=== PATIENT | male | born 1950 | race Caucasian/White ===

== ENCOUNTER 2018-04-07 10:31 | Outpatient (CLI) | payer MEDICARE, OTHER, SELFPAY ==
[2018-04-09 09:52] LABS: PSA, Diagnostic 0.2 ng/ml (0-4.5)
== END 2018-04-07 10:51 ==
PROVIDERS: PCP Nurse Practitioner Family; Visit Provider Urology
DX: C61 Malignant neoplasm of prostate (principal)
CPT/HCPCS: 36415; 84153

== ENCOUNTER 2018-10-09 08:55 | Outpatient (CLI) | payer MEDICARE, OTHER, SELFPAY ==
[2018-10-10 09:49] LABS: PSA, Diagnostic 0.2 ng/ml (0-4.5)
== END 2018-10-09 09:15 ==
PROVIDERS: PCP Nurse Practitioner Family; Visit Provider Urology
DX: C61 Malignant neoplasm of prostate (principal)
CPT/HCPCS: 36415; 84153

== ENCOUNTER 2019-03-27 08:41 | Outpatient (CLI) | payer MEDICARE, OTHER, SELFPAY ==
[2019-03-28 10:34] LABS: PSA, Diagnostic 0.2 ng/ml (0-4.5)
== END 2019-03-27 09:01 ==
PROVIDERS: PCP Nurse Practitioner Family; Visit Provider Urology
DX: C61 Malignant neoplasm of prostate (principal)
CPT/HCPCS: 36415; 84153

== ENCOUNTER 2019-10-09 01:10 | Outpatient (CLI) | payer MEDICARE, OTHER, SELFPAY ==
[2019-10-11 10:57] LABS: PSA, Diagnostic 0.2 ng/mL (0.0-4.5)
== END 2019-10-09 01:30 ==
PROVIDERS: PCP Nurse Practitioner Family; Visit Provider Urology
DX: C61 Malignant neoplasm of prostate (principal)
CPT/HCPCS: 36415; 84153

== ENCOUNTER 2020-05-14 01:49 | Outpatient (CLI) | payer MEDICARE, OTHER, SELFPAY ==
[2020-05-18 09:53] LABS: PSA, Diagnostic 0.3 ng/mL (0.0-4.5)
== END 2020-05-14 02:09 ==
PROVIDERS: PCP Nurse Practitioner Family; Visit Provider Urology
DX: C61 Malignant neoplasm of prostate (principal)
CPT/HCPCS: 36415; 84153

== ENCOUNTER 2020-11-10 03:07 | Outpatient (CLI) | payer MEDICARE, OTHER, SELFPAY ==
[2020-11-10 22:28] LABS: PSA, Diagnostic 0.2 ng/mL (0.0-4.5)
== END 2020-11-10 03:08 | disposition home or self-care (01) ==
LOC: LBO 03:08
PROVIDERS: PCP Nurse Practitioner Family; Visit Provider Urology
DX: C61 Malignant neoplasm of prostate (principal)
CPT/HCPCS: 36415; 84153

== ENCOUNTER 2021-05-24 02:44 | Outpatient (CLI) | payer MEDICARE, OTHER, SELFPAY ==
[2021-05-25 19:15] LABS: PSA, Diagnostic 0.3 ng/mL (0.0-4.5)
== END 2021-05-24 02:45 | disposition home or self-care (01) ==
PROVIDERS: Pediatrics; PCP Nurse Practitioner Family; Visit Provider Urology
DX: C61 Malignant neoplasm of prostate (principal)
CPT/HCPCS: 36415; 84153

== ENCOUNTER 2021-06-11 10:59 | Outpatient (REF) | payer MEDICARE, OTHER, SELFPAY ==
[2021-06-12 20:59] LABS: COVID-19 RT-PCR UVMMC Result Positive (Negative)
== END 2021-06-11 11:00 | disposition home or self-care (01) ==
LOC: NCHCN 10:59
PROVIDERS: PCP Nurse Practitioner Family; Visit Provider Nurse Practitioner Family
DX: Z20.822 Contact with and (suspected) exposure to COVID-19 (principal)
CPT/HCPCS: U0003; U0005

== ENCOUNTER 2021-11-23 03:14 | Outpatient (CLI) | payer MEDICARE, OTHER, SELFPAY ==
[2021-11-24 19:05] LABS: PSA, Diagnostic 0.3 ng/mL (<=6.5)
== END 2021-11-23 03:15 | disposition home or self-care (01) ==
LOC: LBO 03:14
PROVIDERS: PCP Nurse Practitioner Family; Visit Provider Urology
DX: C61 Malignant neoplasm of prostate (principal)
CPT/HCPCS: 36415; 84153

== ENCOUNTER 2022-06-01 03:23 | Outpatient (CLI) | payer MEDICARE, OTHER, SELFPAY ==
[2022-06-02 19:19] LABS: PSA, Diagnostic 0.3 ng/mL (<=6.5)
== END 2022-06-01 03:24 | disposition home or self-care (01) ==
LOC: LBO 03:23
PROVIDERS: PCP Nurse Practitioner Family; Visit Provider Urology
DX: C61 Malignant neoplasm of prostate (principal)
CPT/HCPCS: 36415; 84153

== ENCOUNTER 2022-06-10 15:59 | Outpatient (REF) | payer MEDICARE, OTHER, SELFPAY ==
[2022-06-10 14:29] LABS: Hemoglobin A1C 5.4 % (<5.7)
[2022-06-10 14:50] LABS: Calculated LDL 153 mg/dL (<100); Cholesterol 249 mg/dL (<200); HDL Cholesterol 87 mg/dL (40-60); TSH (W/Ref FT4) 1.74 uIU/mL (0.36-3.74); Triglyceride 45 mg/dL (<150); Vitamin B12 261 pg/mL (193-986)
== END 2022-06-10 16:00 | disposition home or self-care (01) ==
LOC: NCHCN 15:59
PROVIDERS: PCP Nurse Practitioner Family; Visit Provider Nurse Practitioner Family
DX: Z00.00 Encounter for general adult medical examination without abnormal findings (principal); R07.89 Other chest pain; E78.5 Hyperlipidemia, unspecified; C61 Malignant neoplasm of prostate; R06.83 Snoring; M19.049 Primary osteoarthritis, unspecified hand; R41.3 Other amnesia; R68.2 Dry mouth, unspecified; Z83.3 Family history of diabetes mellitus
CPT/HCPCS: 80061; 82607; 83036; 84443

== ENCOUNTER 2022-11-30 03:01 | Outpatient (CLI) | payer MEDICARE, OTHER, SELFPAY ==
[2022-12-01 21:53] LABS: PSA, Diagnostic 0.4 ng/mL (<=6.5)
== END 2022-11-30 03:02 | disposition home or self-care (01) ==
LOC: LBO 03:01
PROVIDERS: PCP Nurse Practitioner Family; Visit Provider Urology
DX: C61 Malignant neoplasm of prostate (principal)
CPT/HCPCS: 36415; 84153

== ENCOUNTER → 2023-01-12 08:54 | Outpatient (BNVA) | payer MEDICARE, OTHER, SELFPAY | PROVIDERS: PCP Nurse Practitioner Family; Referring Provider Nurse Practitioner Family; Visit Provider Physical Therapy Assistant | DX: Z12.11 Encounter for screening for malignant neoplasm of colon (principal) ==

== ENCOUNTER 2023-01-26 07:21 | Day surgery (SDC) | payer MEDICARE, OTHER, SELFPAY ==
--- NOTE | 2023-01-25 21:22 | W.PM.DSUDISC ---
Date of service: 01/26/23 Time of Service: 09:37 Discharge Plan Disposition Patient Disposition: Home Condition: Good Discharge Details Reason For Visit: Screening colonoscopy Attending Provider: Javier Ortiz Primary Care Provider: Lindsay Alvarez Home Meds and New Rx's Prescriptions: Discontinued polyethylene glycol 3350 17 gram/dose powder 238 g PO ONCE Qty: 238 0RF Rx Instructions: take per colonoscopy instructions bisacodyl [Dulcolax (bisacodyl)] 5 mg tablet,delayed release (DR/EC) 5 mg PO ONCE Qty: 4 0RF Rx Instructions: take per colonoscopy instructions No Action No Known Home Meds Discharge Instructions Instructions: Colorectal Polyps (GEN), Diverticulosis (GEN), Diverticulosis Diet (GEN) Additional Instructions: Kehinde, we were able to complete your colonoscopy today without any difficulty. The quality of your prep was excellent. I did see a fair amount of colonic diverticulosis. Diverticula are weak spots in the wall of the large intestine. I find them very commonly. They can become infected, and when that happens, patients typically experience pain on the left side or lower portion of their abdomen. In severe cases, patients need to be treated with antibiotics. I have attached some general information here regarding diverticular disease and the basic management principles. I also found 1 small polyp. I removed this polyp completely. When I have the results of the pathology report, I will be in touch with my recommendations for future colonoscopies. 1. If tolerated, consume a soft, low fiber diet for 1-2 days. 2[address] Do not drive, drink alcohol, operate machinery, make critical decisions, or do activities that require coordination or balance for 24 hours. 3. Because air was put into your colon during the procedure, expelling air from your rectum (passing gas or farting) is normal. 4. You may not have a bowel movement for 1-3 days because of the colonoscopy prep. This is normal. 5. Go directly to the emergency room if you notice any of the following: Develop chills (warm to touch), or if you have a thermometer and your temperature is above 101 Difficulty breathing or difficultly swallowing Persistent vomiting Severe abdominal pain, other than gas cramps Severe chest pain Black, tarry stools Any bleeding ? exceeding one tablespoon 6. Call your physician if the site where your intravenous was started becomes red, swollen, painful, and warm to touch. 7. Your physician has reviewed your pre-procedure medications. Please continue to take those medications as previously ordered. You will be given specific information/education regarding any changes to your medications before leaving. Activity:: Activity as Tolerated Diet:: As Tolerated Discharge Orders Discharge Orders: Discharge Order (Routine); Ordered 01/25/23 Ordered By: Javier Ortiz DS: Diagnosis Discharge Diagnosis (1) Screening for colon cancer: Status: Acute Asessment and Plan: Follow-up on polypectomy results
--- NOTE | 2023-01-25 21:23 | COLE_ITS ---
Date of service: 01/26/23 Time of Service: 09:39 Colonoscopy Report Date of procedure: 01/26/23 Pre-op diagnosis general: Screening colonoscopy Post-op diagnosis procedure note: other (Diverticulosis, cecal polyp) Procedure: Colonoscopy with polypectomy Surgeon: Javier Ortiz Anesthesia Type: General:No Airway Estimated blood loss (mL): 5 Pathology: other (Cecal polyp) Complications: None Disposition: same day Indications: Salvatore is a 72-year-old male needs another screening colonoscopy Prep: Miralax/Dulcolax Procedure Start Time: :05 Procedure End Time: :25 Retraction Time: 12 Findings: Extensive colonic diverticulosis; cecal polyp Procedure Description: After the induction of monitored anesthetic care, and with the patient in left lateral decubitus position, I began by performing an external anorectal exam.? P erineum and skin were normal, as was the anal verge.? There was no evidence of external hemorrhoids.? Next, I performed a digital rectal exam.? I did not appreciate any abnormal findings.? Next, I advanced a colonoscope into the rectal vault.? I performed retroflexion.? This appeared normal.? Using insufflation, I then advanced the colonoscope beyond the rectal folds and into the sigmoid colon before advancing towards the cecum.? The quality of the prep was excellent.? There was extensive diverticulosis, most heavily focused in the sigmoid colon, but certainly extending into the descending and transverse colons. There were sparse and scattered diverticula in the cecum as well. The scope was noted to be in the cecum by identification of the ileocecal valve and appendiceal orifice.? Just proximal to the ileocecal valve was a 0.25 cm sessile polyp. I removed it with cold forceps. There was minimal bleeding. I then began withdrawing the colonoscope using repeated irrigation as necessary for full evaluation of the colonic mucosa. ?Once the scope was withdrawn to the level of the rectum, great care was taken to examine portions of the rectal folds.? Finally, the scope was withdrawn and the patient was brought to the same-day surgery recovery unit as the anesthetic wore off. ?The findings and instructions were shared with the patient prior to discharge.
[2023-01-26 07:33] VITALS: BP 135/82; PULSE 57; RESP 16; TEMP 36.4; O2SAT 100
[2023-01-26] MEDS: Lactated Ringers 1,000 ML 80 ML IV (07:49)
--- NOTE | 2023-01-26 08:04 | W.ANESPRE ---
General Info Height: 5 ft 7 in Weight: 70.7 kg Body Mass Index (BMI): 24.4 Surgical Procedure: Operation Date: 01/26/23 09:05 Proposed Procedure Side Surgeon p Lakeshia Ortiz MD Meds Allergies and Home Medications Allergies Allergy/AdvReac Type Severity Reaction Status Date / Time No Known Allergies Allergy Verified 01/26/23 07:40 Home Medication Medication Instructions Recorded Unknown [No Known Home Meds] 01/26/23 Current Visit Medications: Current Medications Generic Name Dose Route Start Last Admin Trade Name Freq PRN Reason Stop Dose Admin Hyoscyamine Sulfate 0.125 mg 01/25/23 21:24 Hyoscyamine 0.125 Mg Sl/Oral/Chew SL 02/24/23 21:23 DIRECTED PRN Ringer's Solution 1,000 mls @ 80 mls/hr 01/26/23 06:00 01/26/23 07:49 IV 02/24/23 23:59 80 mls/hr INFUSION ALEX Administration IV Miscellaneous Supplies 1 each 01/26/23 06:00 Iv Access IV 02/24/23 23:59 DIRECTED ALEX Ondansetron HCl 4 mg 01/25/23 21:24 Ondansetron 4 Mg/2 Ml Vial IVP 02/24/23 21:23 Q4H PRN PRN Nausea / Vomiting Sodium Chloride 0 ml 01/26/23 06:00 Normal Saline Flush 10 Ml Syr IV 02/24/23 23:59 PRN PRN Sodium Chloride 0 ml 01/26/23 06:00 Normal Saline 10 Ml Vial IJ 02/24/23 23:59 DIRECTED PRN Sterile Water 0 ml 01/26/23 06:00 Water,Injection,Sterile 10 Ml Vial IJ 02/24/23 23:59 DIRECTED PRN PFSH Active Problems Active Problems: Problem Status Onset Code Screening for colon cancer Z12.11 Memory impairment R41.3 Medical History Medical History Bladder neck contracture Chest mass Per pt. states It's nothing serious Per 2018 chest US report: A prominent anterior projection of the xiphoid is noted. There is no evidence of a soft tissue mass or fluid collection. The bone is not well evaluated by ultrasound. If there is further clinical concern, a CT could be performed. Decreased hearing of both ears Dry mouth Erectile dysfunction Family history of diabetes mellitus Hyperlipemia Osteoarthritis of fingers of both hands Prostate cancer Snoring Tinnitus of both ears Surgical History Surgical History H/O prostatectomy History of colonoscopy History of tonsillectomy Tobacco Smoking/Tobacco Use Status: Former Tobacco Use Alcohol Alcohol Intake: former Substance Use Substance use: Rarely Substance use type: marijuana Vital Signs and Lab Results Vital Signs Most Recent Vital Signs in EMR: Most Recent Vital Signs Temp Pulse Resp BP Pulse Ox 36.4 C L 57 L 16 135/82 100 01/26/23 07:33 01/26/23 07:33 01/26/23 07:33 01/26/23 07:33 01/26/23 07:33 Lab Results Blood Type / Crossmatch: No Data to Display Complete Blood Count: No Data to Display Complete Metabolic Panel: No Data to Display Liver Function Panel: No Data to Display Coagulation Panel: No Data to Display Cardiac Panel: No Data to Display Arterial Blood Gas: No Data to Display Venous Blood Gas: No Data to Display Pancreas Panel: No Data to Display Thyroid Panel: No Data to Display Infectious Disease: No Data to Display Blood Cultures: No Data to Display Toxicology Panel: No Data to Display Anesthesia Assessment and Plan Anesthesia History Personal History: No History of Anesthesia Complications Family History: No Family History of Anesthesia Complications Cardiac & Pulmonary Exam Cardiac Exam: Normal S1/S2 Heart Sounds Pulmonary Exam: Clear Bilateral Breath Sounds Implantable Cardiac Device Does patient have a Pacemaker or an ICD?: No ASA Classification ASA Score: ASA 2 Emergency Case?: No Anesthesia Plan Resuscitation Status: Full Code Anesthesia Technique: General Anesthesia Airway Planned: Natural Airway Monitors Used: Standard Monitors Preoperative Comments:: 72 yo male for colo. Sig PMHx: prostate CA (prostatectomy), former smoker (1969), former EtOH, occ cannabis.
--- NOTE | 2023-01-26 08:13 | W.ANESPRE ---
General Info Date of Service Date Performed: 01/26/23 Height: 5 ft 7 in Weight: 70.7 kg Body Mass Index (BMI): 24.4 Surgical Procedure: Operation Date: 01/26/23 09:05 Proposed Procedure Side Surgeon p Lakesiha Ortiz MD Meds Allergies and Home Medications Allergies Allergy/AdvReac Type Severity Reaction Status Date / Time No Known Allergies Allergy Verified 01/26/23 07:40 Home Medication Medication Instructions Recorded Unknown [No Known Home Meds] 01/26/23 Current Visit Medications: Current Medications Generic Name Dose Route Start Last Admin Trade Name Freq PRN Reason Stop Dose Admin Hyoscyamine Sulfate 0.125 mg 01/25/23 21:24 Hyoscyamine 0.125 Mg Sl/Oral/Chew SL 02/24/23 21:23 DIRECTED PRN Ringer's Solution 1,000 mls @ 80 mls/hr 01/26/23 06:00 01/26/23 07:49 IV 02/24/23 23:59 80 mls/hr INFUSION ALEX Administration IV Miscellaneous Supplies 1 each 01/26/23 06:00 Iv Access IV 02/24/23 23:59 DIRECTED ALEX Ondansetron HCl 4 mg 01/25/23 21:24 Ondansetron 4 Mg/2 Ml Vial IVP 02/24/23 21:23 Q4H PRN PRN Nausea / Vomiting Sodium Chloride 0 ml 01/26/23 06:00 Normal Saline Flush 10 Ml Syr IV 02/24/23 23:59 PRN PRN Sodium Chloride 0 ml 01/26/23 06:00 Normal Saline 10 Ml Vial IJ 02/24/23 23:59 DIRECTED PRN Sterile Water 0 ml 01/26/23 06:00 Water,Injection,Sterile 10 Ml Vial IJ 02/24/23 23:59 DIRECTED PRN PFSH Active Problems Active Problems: Problem Status Onset Code Screening for colon cancer Z12.11 Memory impairment R41.3 Medical History Medical History Bladder neck contracture Chest mass Per pt. states It's nothing serious Per 2018 chest US report: A prominent anterior projection of the xiphoid is noted. There is no evidence of a soft tissue mass or fluid collection. The bone is not well evaluated by ultrasound. If there is further clinical concern, a CT could be performed. Decreased hearing of both ears Dry mouth Erectile dysfunction Family history of diabetes mellitus Hyperlipemia Osteoarthritis of fingers of both hands Prostate cancer Snoring Tinnitus of both ears Surgical History Surgical History H/O prostatectomy History of colonoscopy History of tonsillectomy Tobacco Smoking/Tobacco Use Status: Former Tobacco Use Alcohol Alcohol Intake: former Substance Use Substance use: Rarely Substance use type: marijuana Vital Signs and Lab Results Vital Signs Most Recent Vital Signs in EMR: Most Recent Vital Signs Temp Pulse Resp BP Pulse Ox 36.4 C L 57 L 16 135/82 100 01/26/23 07:33 01/26/23 07:33 01/26/23 07:33 01/26/23 07:33 01/26/23 07:33 Lab Results Blood Type / Crossmatch: No Data to Display Complete Blood Count: No Data to Display Complete Metabolic Panel: No Data to Display Liver Function Panel: No Data to Display Coagulation Panel: No Data to Display Cardiac Panel: No Data to Display Arterial Blood Gas: No Data to Display Venous Blood Gas: No Data to Display Pancreas Panel: No Data to Display Thyroid Panel: No Data to Display Infectious Disease: No Data to Display Blood Cultures: No Data to Display Toxicology Panel: No Data to Display Anesthesia Assessment and Plan Anesthesia History Personal History: No History of Anesthesia Complications Family History: No Family History of Anesthesia Complications Exercise Tolerance Exercise Tolerance: Metabolic Equivalents>4 Pertinent Negatives Pertinent Negatives: No Symptoms of GERD, No Major Cardiovascular Symptoms or Complaints and No Major Pulmonary Symptoms or Complaints Cardiac & Pulmonary Exam Cardiac Exam: Normal S1/S2 Heart Sounds Pulmonary Exam: Clear Bilateral Breath Sounds Implantable Cardiac Device Does patient have a Pacemaker or an ICD?: No Airway Exam Known Difficult Airway: No Mallampati Class: 2 Mouth Opening: Normal (> 3cm) Thyromental Distance: Greater than 3 cm Neck Range of Motion: Full ROM Neck Circumference: Normal Teeth Condition: Normal Dentition ASA Classification ASA Score: ASA 2 Emergency Case?: No NPO Status NPO Status: NPO Clears >2 hours, Solids >8 hours Anesthesia Plan Resuscitation Status: Full Code Anesthesia Technique: General Anesthesia Airway Planned: Natural Airway Monitors Used: Standard Monitors
[2023-01-26 08:16] VITALS: BMI 24.4
--- NOTE | 2023-01-26 09:17 | BOWEL_PTH ---
PATIENT: Kehinde Bravo LOC: [facility] U#:[id number] AGE/SX: 72/M ROOM: RE01/26/[address]: Javire Ortiz MD : 1950 BED: DIS: 01/26/2023 SPEC #: [id number] RECD: 01/26/23 12:02 STATUS: GREG REQ #: [id number] HONG: 01/26/23 09:[address]: Javier Ortiz DEPT: Surgical Specimen RECD BY: Sharon Huerta ENTERED: 01/26/23 12:02 SP TYPE: Bowel OTHR DR: Lindsay Alvarez Tissues: 1 - BIOPSY BOWEL Procedures: GROSS AND MICRO LEVEL 4 Comments: [id number]
[2023-01-26 09:35] VITALS: BP 107/80; PULSE 57; RESP 18; TEMP 36.4; O2SAT 98
--- NOTE | 2023-01-26 09:43 | W.ANESPOSTOP ---
Postoperative Evaluation Date, Time and Location Date Performed: 01/26/23 Time Performed: 09:43 Patient Location: Day Surgery Unit Vital Signs Most Recent Imported Vital Signs: Most Recent Vital Signs Temp Pulse Resp BP Pulse Ox 36.4 C L 57 L 18 107/80 98 01/26/23 09:35 01/26/23 09:35 01/26/23 09:35 01/26/23 09:35 01/26/23 09:35 Pain Score Most Recent Pain Score: Most Recent Pain Score Pain Level 0 01/26/23 09:35 Assessment Mental Status: Awake (Alert & Oriented to Patient Baseline) Airway and Respiratory Function: Patent airway with normal (patient baseline) respiratory exam Cardiovascular Function: Hemodynamically Stable Hydration Status: Adequately Hydrated Nausea & Vomiting: No Nausea or Vomiting Pain: Pt. Denies Any Pain Peripheral Nerve Block: Patient did not receive a nerve block
[2023-01-26 09:54] VITALS: BP 124/82; PULSE 54; RESP 18; TEMP 36.4; O2SAT 98
== END 2023-01-26 10:25 | disposition home or self-care (01) ==
PROVIDERS: PCP Nurse Practitioner Family; Visit Provider Surgery
PROC: 0DJD8ZZ Inspection of Lower Intestinal Tract, Via Natural or Artificial Opening Endoscopic (ICD-10-PCS; CPT 45378; principal; 2023-01-26 09:00)
DX: Z12.11 Encounter for screening for malignant neoplasm of colon (principal); K63.5 Polyp of colon; K57.30 Diverticulosis of large intestine without perforation or abscess without bleeding
CPT/HCPCS: 45380; 88305

== ENCOUNTER 2023-06-08 04:55 | Outpatient (CLI) | payer MEDICARE, OTHER, SELFPAY ==
[2023-06-08 23:27] LABS: PSA, Diagnostic 0.3 ng/mL (<=6.5)
--- OUTSIDE RECORDS SUMMARY | 2023-06-09 12:08 | XMS_ITS | Continuity of Care Document ---
Author Name Unknown Organization [facility] Ambulatory [facility] Address [address] [place] [address] Care Team Providers Care Food Science Technician Name Role Phone JARAD ESPINOZA APRN Primary Care Physician [phone] Encounter [facility] NBR [id number] Date(s): 11/28/22 - 11/28/22 [facility] [address] [place] [address]- [place] Discharge Disposition: Home Allergies, Adverse Reactions, Alerts No Known Allergies Assessment and Plan Future Appointments Future Scheduled Tests Laboratory* PSA Diagnostic 11/07/22 * PSA Diagnostic 05/28/22 Problem List Condition Confirmation Course Effective Dates Status Health St [facility] Informant Erectile dysfunction Confirmed Active Prostate cancer Confirmed Active Procedures Procedure Date Related Diagnosis Body Site Status Cystoscopy 1 Completed Hernia repair 2 Completed Robotic assisted surgery 3 Completed 1with laser urethrotomy for postoperative stricture X2 in 2010 2left inguinal hernia repair 3robotic assisted radical prostatectomy 2009 Social History Social History Type Response Tobacco Never tobacco user T obacco Use:. Sex Patient Care team information Care Team Personnel Name: JARAD ESPINOZA APRN Position: No Access Member Role: Primary Care Physician Address: Address: [address] [place] [address] Care Team Related Persons Name: ROBERTO CARTER Address: Home [address] [place] [address]
--- OUTSIDE RECORDS SUMMARY | 2023-06-09 12:08 | XMS_ITS | Continuity of Care Document ---
Author Name Unknown Organization [facility] Ambulatory Clin[facility] Address [address] [place] [address] Care Team Providers Care Manager Of Compliance Name Role Phone JARAD ESPINOZA APRN Primary Care Physician [phone] Encounter [id number] [facility] NBR [id number] Date(s): 12/13/22 - 12/13/22 [facility] Ambulatory [facility] [address] [place] [address]- [place] Encounter Diagnosis Prostate cancer(Discharge Diagnosis) - 12/13/22 Discharge Disposition: Home or Self Care Attending Physician: Nia Glasgow MD Allergies, Adverse Reactions, Alerts No Known Allergies Assessment and Plan Future Appointments Future Scheduled Tests Laboratory* PSA Diagnostic 05/23/23 * PSA Diagnostic 11/07/22 * PSA Diagnostic 05/28/22 Functional Status 12/13/22 Recent Travel History No recent travel Other exposure to Infectious Disease Non e Medications No Known Medications Problem List Condition Confirmation Course Effective Dates Status Health St at[facility] Informant Erectile dysfunction Confirmed Active Prostate cancer Confirmed Active Procedures Procedure Date Related Diagnosis Body Site Status Cystoscopy 1 Completed Hernia repair 2 Completed Robotic assisted surgery 3 Completed 1with laser urethrotomy for postoperative stricture X2 in 2010 2left inguinal hernia repair 3robotic assisted radical prostatectomy 2010 Results Laboratory List Name Date .Urinalysis POCT 12/13/22 Most recent to oldest [Reference Range]: 1 Method of Collect POC Clean Catch *NA* (12/13/22 9:12 AM) Specific [place], Ur POC 1.015 *NA* (12/13/22 9:12 AM) Specimen Color POC [Yellow] Yellow (12/13/22 9:12 AM) Glucose, Urine POC Negative mg/dL *NA* (12/13/22 9:12 AM) Bilirubin, Urine POC [Negative] Negative (12/13/22 9:12 AM) Ketones, Urine POC [Negative mg/dL] Nega tive mg/dL (12/13/22 9:12 AM) Blood, Urine POC [Negative] Negative (12/13/22 9:12 AM) pH, Urine POC 7.0 *NA* (12/13/22 9:12 AM) Protein, Urine POC [Negative mg/dL] Nega tive mg/dL (12/13/22 9:12 AM) Urobilinogen, Urine POC [0.2] 0.2 (12/13/22 9:12 AM) Nitrite, Urine POC [Negative] Negative (12/13/22 9:12 AM) Leuk Esterase, Urine POC [Negative] Nega tive (12/13/22 9:12 AM) Clarity, Urine POC [Clear] Clear (12/13/22 9:12 AM) Vital Signs Most recent to oldest [Reference Range]: 1 Temperature Temporal Artery [36-38 Deg C ] 35.8 Deg C *LOW* (12/13/22 8:48 AM) Peripheral Pulse Rate [60-100 bpm] 61 bp m (12/13/22 8:48 AM) Blood Pressure [90-140/60-90 mmHg] 122/6 6mmHg (12/13/22 8:48 AM) Weight 73.94 kg (12/13/22 8:48 AM) Weight Measured (lbs) 163.01 lb (12/13/22 8:48 AM) [place] Body Weight Calculated 68.4 kg (12/13/22 8:48 AM) Height 172.72 cm (12/13/22 8:48 AM) Height/Length Measured (inches) 68 inch (12/13/22 8:48 AM) BSA Measured 1.88 m2 (12/13/22 8:48 AM) Body Mass Index 24.79 kg/m2 (12/13/22 8:48 AM) Social History Social History Type Response Tobacco Never tobacco user T obacco Use:. Sex Physician Outpatient Note * Nia Glasgow MD: PERFORM Event Display: Office Clinic Note Physician Authored Date: [id number] ELVA MERLOS :1950 Age:72 years Sex:Male Visit Date:12/13/2022 Primary Care Physician: JARAD ESPINOZA APRN Chief Complaint 1 year follow up History of Present Illness Mr. Merlos is a pleasant 72-year-old man here for follow up of prostate cancer. 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 Surgical margins were positive, and perineural invasion was noted. He had a post-operative urine leak, and early issues with an anastomotic stricture that required surgical intervention twice in the year after his surgery. He was last seen by me on 11/30/21.? His PSAs were initially undetectable, but for the past three years has been very slowly rising. ?? He denies unintended weight loss, fevers, chills, night sweats, or unusual new aches or pains. ?? He is voiding without difficulty. He has nocturia x 1. He voids about every??1.5-2 ??h while awake.?? He denies urinary urgency. He has a sometimes slow but always steady urinary stream.? He has occasional faint LISA with heavy lifting and exercise. He does not need to use pads.? He denies gross hematuria, dysuria. He has never had UTI.? PSA: 11/30/22: 0.4 11/23/21: 0.3 11/10/20: 0.2 05/14/20: 0.3 10/09/19: 0.2 03/25/19: 0.2 10/09/18: 0.2 04/07/19: 0.2 04/07/18: 0.2 09/25/17: 0.2 03/27/17: 0.2 12/25/15: 0.1 06/23/15: 0.1 03/25/15: 0.2 10/07/14: 0.1. Physical Exam Vitals & Measurements T:??35.8?C ??(Temporal Artery)?? HR:??61??(Peripheral)?? BP:??122/66?? SpO2:??98%?? HT:??172.72??cm?? WT:??73.94??kg?? BMI:??24.79?? BSA:??1.88?? GENERAL APPEARANCE:??alert and oriented in NAD; appropriate with good affect.??.?? NEURO:??grossly intact.?? HEENT:??NCAT; EOMI.?? NECK:??supple.?? CHEST:??symmetric excursions.?? ABDOMEN:??soft, NT, ND.?? MUSCULOSKELETAL:??good gait and station.?? EXTREMITIES:??no c/c/e??.?? BACK/SPINE:??no CVAT.?? :??deferred. Assessment/Plan Prostate cancer??C61 Ordered: Bladder Scan POC, 12/13/22 8:51:00 EDT, Prostate cancer, 12/13/22 8:51:00 EDT Urine Dipstick Clinic POC (RE), 12/13/22 8:51:00 EDT, Prostate cancer, 12/13/22 8:51:00 EDT ?? ASSESSMENT:?? Mr. Merlos is a very pleasant 72 year-old man with Bessy 6 pT2c adenocarcinomatreated with RALP in February 2010. His PSA was initially undetectable, but arvind to 0.11 in 2015. Ithas been slowly been climbing.?? We discussed CT PET to work him up for recurrence/metastatic disease.?? He wants to repeat another PSA before he considers that. ?? PLAN: 1. He will follow up in 6 months with pre-clinic PSA. Problem List/Past Medical History Ongoing Erectile dysfunction Prostate cancer Historical No qualifying data Procedure/Surgical History ???Cystoscopy???Hernia repair???Robotic assisted surgery Medications No active medications Allergies No Known Allergies Social History Alcohol Never Electronic Cigarette/Vaping Electronic Cigarette Use: Never. Substance Use Never Tobacco Never tobacco user Tobacco Use:. Family History Father: History is unknown Mother: History is unknown Daughter: History is negative Son: History is negative Sister: History is negative Sister: History is negative Brother: History is negative Lab Results Test Name Test Result Date/Time Method of Collect POC Clean Catch 12/13/2022 09:12 EDT Specimen Color POC Yellow 12/13/2022 09:12 EDT Clarity, Urine POC Clear 12/13/2022 09:12 EDT Glucose, Urine POC Negative 12/13/2022 09:12 EDT Bilirubin, Urine POC Negative 12/13/2022 09:12 EDT Ketones, Urine POC Negative 12/13/2022 09:12 EDT Specific [place], Ur POC 1.015 12/13/2022 09:12 EDT pH, Urine POC 7.0 12/13/2022 09:12 EDT Protein, Urine POC Negative 12/13/2022 09:12 EDT Urobilinogen, Urine POC 0.2 12/13/2022 09:12 EDT Nitrite, Urine POC Negative 12/13/2022 09:12 EDT Blood, Urine POC Negative 12/13/2022 09:12 EDT Leuk Esterase, Urine POC Negative 12/13/2022 09:12 EDT Electronically Signed on 12/13/22 09:30 AM Nia Glasgow MD Patient Care team information Care Team Personnel Name: JARAD ESPINOZA APRN Position: No Access Member Role: Primary Care Physician Address: Address: [address] [place] [address] Care Team Related Persons Name: ROBERTO MERLOS Address: Home [address] [place] [address]
== END 2023-06-08 04:56 | disposition home or self-care (01) ==
PROVIDERS: PCP Nurse Practitioner Family; Visit Provider Urology
DX: C61 Malignant neoplasm of prostate (principal)
CPT/HCPCS: 36415; 84153

== ENCOUNTER 2024-06-28 08:19 | Outpatient (CLI) | payer MEDICARE, OTHER, SELFPAY ==
[2024-06-28 18:34] LABS: PSA, Diagnostic 0.3 ng/mL (<=6.5)
== END 2024-06-28 08:20 | disposition home or self-care (01) ==
LOC: LBO 08:21
PROVIDERS: PCP Nurse Practitioner Family; Visit Provider Urology
DX: C61 Malignant neoplasm of prostate (principal)
CPT/HCPCS: 36415; 84153

== ENCOUNTER 2024-12-23 12:18 | Outpatient (CLI) | payer MEDICARE, OTHER, SELFPAY ==
[2024-12-23 18:14] LABS: PSA, Diagnostic 0.4 ng/mL (<=6.5)
== END 2024-12-23 12:19 | disposition home or self-care (01) ==
LOC: LBO 12:19
PROVIDERS: PCP Nurse Practitioner Family; Visit Provider Urology
DX: C61 Malignant neoplasm of prostate (principal)
CPT/HCPCS: 36415; 84153